=== PATIENT | female | born 1965 | race Caucasian/White ===

== ENCOUNTER → 2018-12-14 12:44 | Outpatient (CLI) | payer OTHER, SELFPAY ==
--- NOTE | 2018-12-14 12:49 | CT_ITS ---
STUDY: CT MAXILLOFACIAL SINUSES REASON FOR EXAM: Female, 53 years old. Sinusitis. RADIATION DOSAGE (If Supplied By Facility): CTDIvol = ( 33.45 ) mGy, DLP = ( 726.19 ) mGycm TECHNIQUE: The patient was scanned in a multi detector CT scanner. High resolution axial imaging was performed without the administration of intravenous contrast material. Sagittal and coronal images were reconstructed. Individualized dose optimization techniques were used for this CT. COMPARISON: None. FINDINGS: FRONTAL SINUSES: Normal aeration, without mucosal inflammatory disease. ETHMOIDAL SINUSES: There is minimal mucoperiosteal reaction in the posterior ethmoid air cells. MAXILLARY SINUSES: There is minimal mucoperiosteal reaction at the base of the left maxillary sinus. SPHENOIDAL SINUSES: Mucoperiosteal reaction is seen in the right sphenoid air cell. There is patency of the bilateral maxillary infundibuli with normal uncinate processes, ethmoid bullae, and hiatus semilunaris. Normal bilateral middle turbinates. Normal bilateral inferior turbinates. Normal midline nasal septum. There is patency of the bilateral nasal airways. The visualized osseous structures are normal. The visualized bilateral orbital contents are normal. CT/Sinus/Facial Bone IMPRESSION: Mild sinusitis, as above. Electronically Signed: Jamey Rizzo DO at 10:42 EDT Tel [phone], Service support ,
== END ==
PROVIDERS: Family Provider Preventive Medicine Occupational Medicine; PCP Preventive Medicine Occupational Medicine; Referring Provider Otolaryngology; Visit Provider Otolaryngology
DX: J32.9 Chronic sinusitis, unspecified (principal)
CPT/HCPCS: 70486

== ENCOUNTER → 2022-08-29 | Outpatient (CLI) | payer OTHER, SELFPAY | END | disposition home or self-care (01) | LOC: LABSPEC 15:21 | PROVIDERS: PCP Preventive Medicine Occupational Medicine; Visit Provider Otolaryngology | DX: J32.8 Other chronic sinusitis (principal) | CPT/HCPCS: 87070; 87205 ==

== ENCOUNTER → 2022-12-02 | Outpatient (CLI) | payer OTHER, SELFPAY ==
[2022-12-02 15:41] LABS: EXAGEN MAILED SPECIMEN
[2022-12-02 18:13] LABS: Color, Urine Yellow (Yellow); Glucose, Dipstick Normal (Normal); Ketone-Dipstick 5 mg/dl (Negative); Leukocyte Esterase-Dipstick 500 /ul (Negative); Nitrite-Dipstick Negative (Negative); Occult Blood-Urine 150 /ul (Negative); Protein-Dipstick 30 mg/dl (Negative); Urine Clarity Turbid (Clear); Urine Urobilinogen 4 mg/dl (Normal)
[2022-12-02 18:18] LABS: Urine Bilirubin Dipstick 1 mg/dL (Negative)
[2022-12-02 18:20] LABS: Absolute Lymphocyte Count 2.78 X10^3/uL (0.83-4.51); Absolute Neutrophil Count 6.8 X10^3/uL (2.0-7.7); Basophil# 0.09 X10^3/uL; Basophil% 0.9 % (0-1); Eosinophil# 0.09 X10^3/uL; Eosinophils% 0.9 % (0-5); Hematocrit 45.5 % (37-47); Hemoglobin 16.1 g/dL (12.0-15.0); Lymphocyte # 2.78 X10^3/ul (0.83-4.51); Lymphocyte % 26.3 % (19-41); Mean Corp Hgb Conc 35.4 g/dL (32-36); Mean Corpuscular Hgb 34.5 pg (27.0-32.0); Mean Corpuscular Volume 97.6 fL (81-99); Mean Platelet Vol. 10.7 fl (6.2-12.0); Monocyte# 0.75 X10^3/uL; Monocyte% 7.1 % (0-10); NRBC Flagged by Analyzer 0 % (0-5); Neutrophil # 6.84 X10^3/uL (2.7-7.7); Neutrophil % 64.6 % (47-70); Platelet Count 334 K/mm3 (150-450); RBC Distribution Width CV 12.9 % (11.6-14.6); RBC Distribution Width SD 46.1 fl (35.1-43.9); Red Blood Count 4.66 M/mm3 (4.2-5.4); White Blood Count 10.6 K/mm3 (4.4-11.0)
[2022-12-02 18:25] LABS: Protein, Urine (Random) 46.1 mg/dL (<11.9); Protein:Creat Ratio 195 mg/g CRE (0-200)
[2022-12-02 18:27] LABS: ALB/GLOB Ratio 0.8 RATIO (0.9-2.4); AST(SGOT) 108 U/L (15-37); Alanine Aminotransfer ALT/SGPT 60 U/L (13-56); Albumin, Serum 3.3 g/dL (3.2-5.0); Alkaline Phosphatase 157 U/L (45-117); Anion Gap 13 (5-15); BUN 7 mg/dL (7-18); BUN/Creat Ratio 10.3 RATIO (10-20); Calcium,Total 9.6 mg/dL (8.5-10.1); Chloride 90 mmol/L (98-107); Creatinine, Serum 0.68 mg/dL (0.55-1.02); EST Glomerular Filtration Rate 95 mL/min (>60); Est Glom Filt Rate - Afr Amer 115 mL/min (>60); Globulin 4.4 g/dL (2.2-4.2); Glucose 136 mg/dL (74-106); Protein, Total 7.7 g/dL (6.4-8.2); Sodium Level 128 mmol/L (136-145)
[2022-12-02 20:39] LABS: International Normalized Ratio 1.2; Partial Thromboplast Time 31.8 Seconds (24.1-36.2); Prothrombin Time (Protime)PT. 14.6 SECONDS (11.7-14.9)
[2022-12-04 14:22] LABS: Thrombin Time 22.6 sec (0.0-23.0)
[2022-12-04 20:08] LABS: Dilute Prothrombin Time (dPT) 49.6 sec (0.0-47.6); Dilute Russell Viper Venom 33.2 sec (0.0-47.0); Hexagonal Phase Phospholipid 6 sec (0-11); PTT-LA 38.7 sec (0.0-43.5); QNTFERON TB Mitogen Value > 10.00 IU/mL (.); QNTFERON TB Nil Value 0 IU/mL (.); QNTFERON TB1+ Ag Value 0 IU/mL (.); QNTFERON TB2+ Ag Value 0 IU/mL (.); Thrombin Time 17.4 sec (0.0-23.0)
[2022-12-04 21:29] LABS: Interpretation Comment: (.); QNTIFERON TB Positive Criteria Negative (Negative)
== END | disposition home or self-care (01) ==
PROVIDERS: PCP Preventive Medicine Occupational Medicine; Visit Provider Internal Medicine Rheumatology
DX: M06.4 Inflammatory polyarthropathy (principal); R76.8 Other specified abnormal immunological findings in serum; M79.7 Fibromyalgia
CPT/HCPCS: 36415; 80053; 81002; 82570; 84156; 85025; 85598; 85610; 85670; 85730; 86480

== ENCOUNTER → 2022-12-27 | Outpatient (CLI) | payer OTHER, SELFPAY ==
--- NOTE | 2022-12-27 15:55 | RAD_ITS ---
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 FINDINGS: LINES/DEVICES: None. LUNGS: No consolidation. No pneumothorax. MEDIASTINUM: Unremarkable. CARDIAC SILHOUETTE: Not enlarged. BONES AND SOFT TISSUES: No acute abnormalities. RAD/Chest PA and Lateral IMPRESSION: No evidence of active intrathoracic disease. Electronically Signed: Cristiane Elmore MD at 3:59 EDT ,
== END | disposition home or self-care (01) ==
LOC: MTRAD 15:53
PROVIDERS: PCP Preventive Medicine Occupational Medicine; Referring Provider Internal Medicine Rheumatology; Visit Provider Internal Medicine Rheumatology
DX: M05.79 Rheumatoid arthritis with rheumatoid factor of multiple sites without organ or systems involvement (principal); R76.8 Other specified abnormal immunological findings in serum; M79.7 Fibromyalgia; F41.9 Anxiety disorder, unspecified; F32.A Depression, unspecified; I10 Essential (primary) hypertension; J30.2 Other seasonal allergic rhinitis
CPT/HCPCS: 71046

== ENCOUNTER → 2023-03-12 | Outpatient (CLI) | payer OTHER, SELFPAY ==
[2023-03-12 12:29] LABS: Absolute Lymphocyte Count 2.42 X10^3/uL (0.83-4.51); Absolute Neutrophil Count 3.8 X10^3/uL (2.0-7.7); Basophil# 0.04 X10^3/uL; Basophil% 0.6 % (0-1); Eosinophil# 0.28 X10^3/uL; Eosinophils% 3.9 % (0-5); Hematocrit 39.8 % (37-47); Hemoglobin 13.3 g/dL (12.0-15.0); Lymphocyte # 2.42 X10^3/ul (0.83-4.51); Lymphocyte % 33.6 % (19-41); Mean Corp Hgb Conc 33.4 g/dL (32-36); Mean Corpuscular Hgb 32.4 pg (27.0-32.0); Mean Corpuscular Volume 97.1 fL (81-99); Mean Platelet Vol. 11.5 fl (6.2-12.0); Monocyte# 0.64 X10^3/uL; Monocyte% 8.9 % (0-10); NRBC Flagged by Analyzer 0 % (0-5); Neutrophil % 52.7 % (47-70); Platelet Count 260 K/mm3 (150-450); RBC Distribution Width CV 12.9 % (11.6-14.6); RBC Distribution Width SD 45.9 fl (35.1-43.9); White Blood Count 7.2 K/mm3 (4.4-11.0)
[2023-03-12 13:35] LABS: ALB/GLOB Ratio 0.9 RATIO (0.9-2.4); AST(SGOT) 17 U/L (15-37); Alanine Aminotransfer ALT/SGPT 14 U/L (13-56); Albumin, Serum 3.6 g/dL (3.2-5.0); Alkaline Phosphatase 60 U/L (45-117); Anion Gap 9 (5-15); BUN 6 mg/dL (7-18); Calcium,Total 9.6 mg/dL (8.5-10.1); Chloride 102 mmol/L (98-107); EST Glomerular Filtration Rate 109 mL/min (>60); Est Glom Filt Rate - Afr Amer 132 mL/min (>60); Globulin 3.8 g/dL (2.2-4.2); Glucose 83 mg/dL (74-106); Potassium 3.6 mmol/L (3.5-5.1); Protein, Total 7.4 g/dL (6.4-8.2); Sodium Level 137 mmol/L (136-145)
== END | disposition home or self-care (01) ==
LOC: MTLAB 09:18
PROVIDERS: PCP Preventive Medicine Occupational Medicine; Referring Provider Internal Medicine Rheumatology; Visit Provider Internal Medicine Rheumatology
DX: M05.79 Rheumatoid arthritis with rheumatoid factor of multiple sites without organ or systems involvement (principal); M79.7 Fibromyalgia; R76.8 Other specified abnormal immunological findings in serum
CPT/HCPCS: 36415; 80053; 85025

== ENCOUNTER → 2023-09-25 | Outpatient (CLI) | payer OTHER, SELFPAY ==
--- OUTSIDE RECORDS SUMMARY | 2023-09-25 09:44 | XMS RPT_ITS | CCD ---
Author Name Unknown Address [address] [place] [address] Organization [facility] Care Team Providers Care Window Systems Administrator Name Role Phone KAREN PETTIT DO Primary Care Physician [phone] [address] DIALLO, DR KAPLAN [facility] KAREN PETTIT DO Primary Care Unavailable KAREN PETTIT DO Attending Unavailable KAREN PETTIT DO Primary Care Unavailable KAREN PETTIT DO Attending Unavailable KAREN PETTIT DO Primary Care Unavailable Allergies Allergy Classification Reported Allergen(s) Allergy Type Date of Onset Reaction(s) Facility (3 sources) buPROPion; Translations: [bupropion] Drug Allergy Tachycardia (finding) [facility] Work Phone: (3 sources) Sertraline; Translations: [sertraline] Drug Allergy Pulse fast (finding) [facility] Work Phone: Medications Current Medications Medication Drug Class(es) Dates Sig (Normalized) Sig (Original) [id number] 200 actuat albuterol 0.09 mg/actuat metered dose inhaler (3 sources) beta2-Adrenergic Agonist Start: 01-30-2022 take 2 puff(s) by inhalation every four hours as needed for wheezing ProAir HFA MDI (90 mcg/inh) inhalation aerosol 2 puff(s), Inhalation, q4h, PRN as needed for wheezing, # 1 EA, 1 Refill(s), Pharmacy: [facility], 155, cm, 01/30/22 16:20:00 EDT, Height, kg, 01/30/22 16:20:00 EDT, Dosing Weight Start Date: 01/30/22 Status: Ordered Completed/Discontinued Medications Medication Drug Class(es) Dates Sig (Normalized) Sig (Original) dextromethorphan hydrobromide 3 mg/ml / promethazine hydrochloride 1.25 mg/ml oral solution (2 sources) Phenothiazine, Uncompetitive Z-jrkysv-T-aspartate Receptor Antagonist, Sigma-1 Agonist Start: 09-26-2022 End: 10-03-2022 take 1 dose by mouth every six hours as needed for cough dextromethorpha n-promethazine 15 mg-6.25 mg/5 mL oral syrup Dose = 5 mL, Oral, q6h, PRN for cough, # 180 mL, 0 Refill(s), Pharmacy: [facility], Chronic cough, 155, cm, 09/25/22 10:30:00 EST, Height Start Date: 09/26/22 Stop Date: 10/03/22 Status: Ordered LORazepam 0.5 mg oral tablet (3 sources) Benzodiazepine Start: 09-25-2022 End: 10-25-2022 LORazepam 0.5 mg oral tablet Dose : 0.5 mg = 1 tab(s), Oral, TID, PRN anxiety, # 90 tab(s), 0 Refill(s), Pharmacy: [facility], Chronic anxiety, 155, cm, 09/25/22 10:30:00 EST, Height, 72.2, kg, 09/25/22 10:30:00 EST, Dosing Weight Start Date: 09/25/22 Stop Date: 10/25/22 Status: Ordered Problems Problem Classification Problem Date Documented Date Episodic/Chronic Allergic reactions (3 sources) Environmental allergy 10-05-2019 Episodic Anxiety disorders (3 sources) Chronic anxiety 05-19-2019 Chronic Disorders of lipid metabolism (3 sources) Pure hypercholesterolemia 01-07-2020 Chroni c Essential hypertension (3 sources) Hypertensive disorder 09-14-2014 Chronic Immunizations and screening for infectious disease (1 source) Anti-nuclear factor positive 10-31-2022 Episodic Malaise and fatigue (2 sources) Fatigue 10-23-2022 Episodic Mood disorders (3 sources) Depressive disorder 05-19-2019 Chronic Nausea and vomiting (2 sources) Nausea 10-23-2022 Episodic Other infections; including parasitic (3 sources) H/O: viral illness 09-20-2020 Episodic Other lower respiratory disease (2 sources) Chronic cough 09-26-2022 Episodic Other non-traumatic joint disorders (2 sources) Multiple joint pain 10-23-2022 Episodic Other non-traumatic joint disorders (1 source) Hand joint pain 11-20-2022 Episodic Other upper respiratory disease (2 sources) Allergic rhinitis 01-30-2022 Chronic Other upper respiratory infections (2 sources) Chronic maxillary sinusitis 09-25-2022 Chronic Other upper respiratory infections (1 source) Viral upper respiratory tract infection 09-19-2021 Episodic Residual codes; unclassified (3 sources) Disturbance in sleep behavior 04-10-2020 Episodic Unclassified (2 sources) Patient encounter status 09-09-2022 Results Test Name Value Interpretation Reference Range Facil ity Encounters Encounter Date Encounter Type Care Provider Facility Start: 12-24-2022 End: 12-25-[address] ROSAURA BUTCHER MD Facility:[facility] Start: 12-24-2022 End: 12-24-[address] ROSAURA BUTCHER MD [facility] Start: 10-28-2022 End: 10-29-2022 ambulatory KAREN PETTIT DO Facility:[facility] Start: 10-28-2022 End: 10-28-2022 Patient encounter procedure KAREN HODAN DO [facility] Start: 10-03-2022 End: 10-04-2022 ambulatory KAREN PETTIT DO Facility:[facility] Start: 09-20-2021 End: 09-20-2021 Patient encounter procedure KAREN HODAN DO [facility] Procedures Date Procedure Procedure Detail Performing Clinician Start: 06-22-2022 Functional endoscopi c sinus surgery KAREN PETTIT DO Immunizations Immunization Date Immunization Notes Care Provider Fa cility 10-05-2019 influenza, injectabl e, quadrivalent, preservative free; Translations: [Fluarix PF Quadrivalent ] KAREN PETTIT DO [facility] Payers Date Payer Category Payer Unknown [id number] 1965 Unknown [id number] 1965 Unknown [id number] 1965 Unknown [id number] Social History Date Type Detail Facility Start: 10-05-2019 Never smoked tobacco (f inding) [facility] Clinical Note 12-24-2022 Note Date & Type Note Facility 12-24-2022 Note ORIGINAL EXAMINATION: LIMITED ABDOMINAL ULTRASOUND12/24/2022 8:51 am COMPARISON: None HISTORY: ORDERING SYSTEM PROVIDED HISTORY: Reason for Exam: elvt liver enz FINDINGS: The liver is prominent in size and shows diffuse coarsening and mildly increased echogenicity. There are multiple geographic poorly defined areas of decreased echogenicity in the liver some of which are along the expected location of the falciform ligament and adjacent to the gallbladder. No other liver abnormality. No intrahepatic bile duct dilatation. The common duct is 2.9 mm at the juan hepatis. Normal gallbladder. Negative sonographic Mckay's sign. The visualized pancreas is normal, small portions are obscured by bowel gas. There is no right upper quadrant ascites. The right kidney is normal in size and echogenicity with no pelvocaliectasis. The visualized aorta and IVC are not dilated. IMPRESSION: Hepatic steatosis or other diffuse hepatocellular disease. Multiple areas of focal liver abnormality are favored to be from focal fatty sparing. Consider a CT of the abdomen with contrast to exclude liver mass lesions. If there is concern for fibrosis/cirrhosis, liver elastography can be considered. Interpreted by: Michael Knight MD Preliminary Report By: Michael Knight MD Electronically signed By Michael Knight MD Dictated Date: 12/24/2022 11:07:48 AM Prelim Date: 12/24/2022 11:11:47 AM Sign Date: 12/24/2022 11:11:47 AM Ordering Provider: [facility] Clinical Note 12-24-2022 Note Date & Type Note Facility 12-24-2022 Note ORIGINAL EXAMINATION: LIMITED ABDOMINAL ULTRASOUND12/24/2022 8:51 am COMPARISON: None HISTORY: ORDERING SYSTEM PROVIDED HISTORY: Reason for Exam: elvt liver enz FINDINGS: The liver is prominent in size and shows diffuse coarsening and mildly increased echogenicity. There are multiple geographic poorly defined areas of decreased echogenicity in the liver some of which are along the expected location of the falciform ligament and adjacent to the gallbladder. No other liver abnormality. No intrahepatic bile duct dilatation. The common duct is 2.9 mm at the juan hepatis. Normal gallbladder. Negative sonographic Mckay's sign. The visualized pancreas is normal, small portions are obscured by bowel gas. There is no right upper quadrant ascites. The right kidney is normal in size and echogenicity with no pelvocaliectasis. The visualized aorta and IVC are not dilated. IMPRESSION: Hepatic steatosis or other diffuse hepatocellular disease. Multiple areas of focal liver abnormality are favored to be from focal fatty sparing. Consider a CT of the abdomen with contrast to exclude liver mass lesions. If there is concern for fibrosis/cirrhosis, liver elastography can be considered. Interpreted by: Michael Knight MD Preliminary Report By: Michael Knight MD Electronically signed By Michael Knight MD Dictated Date: 12/24/2022 11:07:48 AM Prelim Date: 12/24/2022 11:11:47 AM Sign Date: 12/24/2022 11:11:47 AM Ordering Provider: [facility] Evaluation + Plan note Laboratory Note Date & Type Note Facility Evaluation + Plan note Future Appointments Appointment Date:10/29/2021 01:00:00 PM Scheduled Provider:KAREN PETTIT DO Location:[facility] Appointment Type:PC OV Future Scheduled TestsCOVID-19 Only (AO) 09/19/21 [facility] Evaluation + Plan note Laboratory Note Date & Type Note Facility Evaluation + Plan note Future Appointments Appointment Date:11/20/2022 02:45:00 PM Scheduled Provider:KAREN PETTIT DO Location:[facility] Appointment Type:PC OV Appointment Date:03/24/2023 10:00:00 AM Scheduled Provider:KAREN PETTIT DO Location:[facility] Appointment Type:PC OV Diagnostic Tests PendingRheumatoid Factor 10/28/22Antinuclear Antibody Screen, Serum 10/28/22 Future Scheduled TestsLipid Profile 01/30/22Microalbumin Level Urine 01/30/22Complete Metabolic Panel 01/30/22 [facility] Evaluation + Plan note Laboratory Note Date & Type Note Facility Evaluation + Plan note Future Appointments Appointment Date:03/24/2023 10:00:00 AM Scheduled Provider:KAREN PETTIT DO Location:[facility] Appointment Type:PC OV Future Scheduled TestsLipid Profile 01/30/22Microalbumin Level Urine 01/30/22Complete Metabolic Panel 01/30/22 [facility] Hospital course Narrative Note Date & Type Note Facility Hospital course Narrative No data available for this section [facility] Hospital Discharge instructions Note Date & Type Note Facility Hospital Discharge instructions No data available for this section [facility] Progress note Note Date & Type Note Facility Progress note No data available for this section [facility] Summary Purpose Family History No Family History Records Found Advance Directives No Advanced Directives Records Found Additional Source Comments Care Team (unrecognized sect ion and content) Care Team Personnel Name: KAREN PETTIT DO Position: P4 Physician - Primary Care Member Role: Primary Care Physician Address: Address: [address] [place] [id number] Care Team Related Persons Name: SELENA ANDREWS Address: Home [address] [place], [place] [id number] Address: Temporary [address] [place], [place] [id number] Patient Care team informatio n (unrecognized section and content) Care Team Personnel Name: KAREN PETTIT DO Position: P4 Physician - Primary Care Member Role: Primary Care Physician Address: Address: [address] [place] [id number] Care Team Related Persons Name: SELENA ANDREWS Address: Home [address] [place], [place] [id number] Address: Temporary [address] [place], [place] [id number] INFORMATION SOURCE (unrecogn ized section and content) FOR RECORDS PERTAINING TO PATIENTS WHO ARE OR HAVE BEEN ENROLLED IN A CHEMICAL DEPENDENCY/SUBSTANCEABUSE PROGRAM, SOME INFORMATION MAY BE OMITTED. This clinical summary was aggregated from multiple sources. Caution should be exercised in using it in the provision of clinical care. This summary normalizes information from multiple sources, and as a consequence, information in this document may materially change the coding, format and clinical context of patient data. In addition, data may be omitted in some cases. CLINICAL DECISIONS SHOULD BE BASED ON THE PRIMARY CLINICAL RECORDS. [facility] [employer] provides no warranty or guarantee of the accuracy or completeness of information in this document.
[2023-09-25 10:24] LABS: Absolute Lymphocyte Count 2.57 X10^3/uL (0.83-4.51); Absolute Neutrophil Count 2.9 X10^3/uL (2.0-7.7); Basophil# 0.03 X10^3/uL; Basophil% 0.5 % (0-1); Eosinophil# 0.14 X10^3/uL; Eosinophils% 2.3 % (0-5); Hematocrit 42.6 % (37-47); Hemoglobin 14.3 g/dL (12.0-15.0); Lymphocyte # 2.57 X10^3/ul (0.83-4.51); Lymphocyte % 41.7 % (19-41); Mean Corp Hgb Conc 33.6 g/dL (32-36); Mean Corpuscular Hgb 32.4 pg (27.0-32.0); Mean Corpuscular Volume 96.4 fL (81-99); Mean Platelet Vol. 10.7 fl (6.2-12.0); Monocyte# 0.52 X10^3/uL; Monocyte% 8.4 % (0-10); NRBC Flagged by Analyzer 0 % (0-5); Neutrophil # 2.89 X10^3/uL (2.7-7.7); Neutrophil % 46.9 % (47-70); Platelet Count 228 K/mm3 (150-450); RBC Distribution Width CV 13.2 % (11.6-14.6); RBC Distribution Width SD 47.6 fl (35.1-43.9); Red Blood Count 4.42 M/mm3 (4.2-5.4); White Blood Count 6.2 K/mm3 (4.4-11.0)
[2023-09-25 10:54] LABS: AST(SGOT) 23 U/L (15-37); Alanine Aminotransfer ALT/SGPT 24 U/L (13-56); Albumin, Serum 3.8 g/dL (3.2-5.0); Alkaline Phosphatase 66 U/L (45-117); Anion Gap 5 (5-15); BUN 10 mg/dL (7-18); BUN/Creat Ratio 16.9 RATIO (10-20); Calcium,Total 9.1 mg/dL (8.5-10.1); Chloride 101 mmol/L (98-107); Creatinine, Serum 0.59 mg/dL (0.55-1.02); EST Glomerular Filtration Rate 111 mL/min (>60); Est Glom Filt Rate - Afr Amer 134 mL/min (>60); Globulin 3.9 g/dL (2.2-4.2); Glucose 93 mg/dL (74-106); Potassium 3.8 mmol/L (3.5-5.1); Protein, Total 7.7 g/dL (6.4-8.2); Sodium Level 138 mmol/L (136-145)
== END | disposition home or self-care (01) ==
LOC: MTLAB 09:15
PROVIDERS: PCP Preventive Medicine Occupational Medicine; Referring Provider Internal Medicine Rheumatology; Visit Provider Internal Medicine Rheumatology
DX: M05.79 Rheumatoid arthritis with rheumatoid factor of multiple sites without organ or systems involvement (principal); R76.8 Other specified abnormal immunological findings in serum; M79.7 Fibromyalgia; F41.9 Anxiety disorder, unspecified; F32.A Depression, unspecified; I10 Essential (primary) hypertension; J30.2 Other seasonal allergic rhinitis; Z79.899 Other long term (current) drug therapy
CPT/HCPCS: 36415; 80053; 85025

== ENCOUNTER → 2024-01-26 | Outpatient (CLI) | payer OTHER, SELFPAY ==
[2024-01-26 15:26] LABS: Absolute Lymphocyte Count 3.12 X10^3/uL (0.83-4.51); Absolute Neutrophil Count 4.6 X10^3/uL (2.0-7.7); Basophil# 0.06 X10^3/uL; Basophil% 0.7 % (0-1); Eosinophil# 0.18 X10^3/uL; Hematocrit 43.9 % (37-47); Hemoglobin 15.1 g/dL (12.0-15.0); Lymphocyte # 3.12 X10^3/ul (0.83-4.51); Lymphocyte % 35.5 % (19-41); Mean Corp Hgb Conc 34.4 g/dL (32-36); Mean Corpuscular Hgb 32.8 pg (27.0-32.0); Mean Corpuscular Volume 95.2 fL (81-99); Mean Platelet Vol. 10.8 fl (6.2-12.0); Monocyte# 0.77 X10^3/uL; Monocyte% 8.8 % (0-10); NRBC Flagged by Analyzer 0 % (0-5); Neutrophil # 4.63 X10^3/uL (2.7-7.7); Neutrophil % 52.7 % (47-70); Platelet Count 236 K/mm3 (150-450); RBC Distribution Width SD 45.6 fl (35.1-43.9); Red Blood Count 4.61 M/mm3 (4.2-5.4); White Blood Count 8.8 K/mm3 (4.4-11.0)
[2024-01-26 16:41] LABS: AST(SGOT) 34 U/L (15-37); Alanine Aminotransfer ALT/SGPT 34 U/L (13-56); Albumin, Serum 3.8 g/dL (3.2-5.0); Alkaline Phosphatase 64 U/L (45-117); Anion Gap 7 (5-15); BUN 7 mg/dL (7-18); BUN/Creat Ratio 9.8 RATIO (10-20); Calcium,Total 9.5 mg/dL (8.5-10.1); Chloride 100 mmol/L (98-107); Creatinine, Serum 0.71 mg/dL (0.55-1.02); EST Glomerular Filtration Rate 90 mL/min (>60); Est Glom Filt Rate - Afr Amer 109 mL/min (>60); Globulin 3.9 g/dL (2.2-4.2); Glucose 103 mg/dL (74-106); Potassium 3.5 mmol/L (3.5-5.1); Protein, Total 7.7 g/dL (6.4-8.2); Sodium Level 136 mmol/L (136-145)
== END | disposition home or self-care (01) ==
PROVIDERS: PCP Preventive Medicine Occupational Medicine; Referring Provider Internal Medicine Rheumatology; Visit Provider Internal Medicine Rheumatology
DX: M05.79 Rheumatoid arthritis with rheumatoid factor of multiple sites without organ or systems involvement (principal); R76.8 Other specified abnormal immunological findings in serum; M79.7 Fibromyalgia; F41.9 Anxiety disorder, unspecified; F32.A Depression, unspecified; I10 Essential (primary) hypertension; J30.2 Other seasonal allergic rhinitis; Z79.899 Other long term (current) drug therapy
CPT/HCPCS: 36415; 80053; 85025

== ENCOUNTER → 2024-05-12 | Outpatient (CLI) | payer OTHER, SELFPAY ==
[2024-05-12 12:23] LABS: Absolute Lymphocyte Count 2.53 X10^3/uL (0.83-4.51); Absolute Neutrophil Count 3.9 X10^3/uL (2.0-7.7); Basophil# 0.05 X10^3/uL; Basophil% 0.7 % (0-1); Eosinophil# 0.23 X10^3/uL; Eosinophils% 3.1 % (0-5); Hematocrit 42.8 % (37-47); Hemoglobin 14.6 g/dL (12.0-15.0); Lymphocyte # 2.53 X10^3/ul (0.83-4.51); Lymphocyte % 34.4 % (19-41); Mean Corp Hgb Conc 34.1 g/dL (32-36); Mean Corpuscular Hgb 32.3 pg (27.0-32.0); Mean Corpuscular Volume 94.7 fL (81-99); Mean Platelet Vol. 11.7 fl (6.2-12.0); Monocyte# 0.61 X10^3/uL; Monocyte% 8.3 % (0-10); NRBC Flagged by Analyzer 0 % (0-5); Neutrophil # 3.92 X10^3/uL (2.7-7.7); Neutrophil % 53.2 % (47-70); Platelet Count 208 K/mm3 (150-450); RBC Distribution Width CV 12.1 % (11.6-14.6); RBC Distribution Width SD 42.5 fl (35.1-43.9); Red Blood Count 4.52 M/mm3 (4.2-5.4); White Blood Count 7.4 K/mm3 (4.4-11.0)
[2024-05-12 12:44] LABS: ALB/GLOB Ratio 0.9 RATIO (0.9-2.4); AST(SGOT) 23 U/L (15-37); Alanine Aminotransfer ALT/SGPT 28 U/L (13-56); Albumin, Serum 3.5 g/dL (3.2-5.0); Alkaline Phosphatase 50 U/L (45-117); Anion Gap 4 (5-15); BUN 9 mg/dL (7-18); BUN/Creat Ratio 14.4 RATIO (10-20); Calcium,Total 9.3 mg/dL (8.5-10.1); Chloride 101 mmol/L (98-107); Creatinine, Serum 0.62 mg/dL (0.55-1.02); EST Glomerular Filtration Rate 104 mL/min (>60); Est Glom Filt Rate - Afr Amer 126 mL/min (>60); Glucose 96 mg/dL (74-106); Potassium 3.6 mmol/L (3.5-5.1); Protein, Total 7.5 g/dL (6.4-8.2); Sodium Level 136 mmol/L (136-145)
== END | disposition home or self-care (01) ==
PROVIDERS: PCP Preventive Medicine Occupational Medicine; Referring Provider Internal Medicine Rheumatology; Visit Provider Internal Medicine Rheumatology
DX: M05.79 Rheumatoid arthritis with rheumatoid factor of multiple sites without organ or systems involvement (principal); R76.8 Other specified abnormal immunological findings in serum; M79.7 Fibromyalgia; Z79.899 Other long term (current) drug therapy
CPT/HCPCS: 36415; 80053; 85025